=== PATIENT | female | born 1960 | race Caucasian/White ===

== ENCOUNTER 2016-10-24 21:50 | Emergency (ER) | payer OTHER ==
[~2016-10-24] VITALS: Ht 157.5 cm; Wt 63.2 kg
[~2016-10-24 21:50] MED LIST: ALPR0.25 PO; CLX/20 PO
[2016-10-24 21:51] VITALS: TEMP 36.4; Ht 157.5 cm; Wt 63.2 kg
[2016-10-24] MEDS ORDERED: ATOR-22 PO (21:56)
[2016-10-24] MEDS ORDERED: IBUPROFEN 600 MG TAB PO STA (22:01)
--- NOTE | 2016-10-24 22:47 | DIAGNOSTIC IMAGING REPORT ---
RIGHT SHOULDER MIN 2 VIEWS ROUTINE CLINICAL HISTORY: right shoulder injury Right trauma. Pain. COMPARISON: None. DISCUSSION: The bones and joint spaces appear intact. There is no evidence of fracture, dislocation or bony disease. There is no evidence for soft tissue swelling. IMPRESSION: Negative study. Electronically signed by: Quinn Lee M.D. 10/24/2016 10:46 PM Dictated Date/Time: 10/24/2016 10:46 PM
[2016-10-24] MEDS ORDERED: HYDR-5688 PO (23:11)
[2016-10-24] MEDS ORDERED: NORCO 5/325MG HOME PACK PO ONE (23:15)
[2016-10-24 23:21] VITALS: BP 133/81; PULSE 71; O2SAT 99
--- NOTE | 2016-10-25 01:59 | EMERGENCY ROOM VISIT NOTE ---
ED Visit Note First contact with patient: 21:54 CHIEF COMPLAINT: Shoulder pain HISTORY OF PRESENT ILLNESS: This 56 year old female patient presents to the emergency department complaining of pain in the right shoulder that began today at work. 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 The patient states that she was lifting the resident, the resident refused to stand on his own after assisting with the transfer. This caused the patient's right shoulder should be pulled inferiorly , causing significant pain. There is limitation of motion of the arm because of the pain. The pain is moderate, constant and increases with motion of the hand and arm. The patient states the pain is dull and 8/10. The patient has taken nothing with relief of the pain. No previous significant previous shoulder disease or injury. No numbness or tingling. No neck and not back pain. No chest pain or shortness of breath. No abdominal pain or nausea/vomiting. No cough. REVIEW OF SYSTEMS: A 6 system review of systems was performed with positives and pertinent negatives in the HPI. ALLERGIES: Penicillin MEDICATIONS: No chronic medication PMH: Otherwise healthy SOCIAL HISTORY: Employed and lives locally PHYSICAL EXAM: Vital Signs: Reviewed nurse's notes, vital signs stable. GENERAL : White female, in no acute distress, but appears to be in pain, well-developed , well-nourished. MUSCULOSKELETAL: There is no deformity in the contour of the right shoulder and there are no surinder deformities noted. There is no sulcus sign. There is tenderness over the superior and inferior scapula as well as the lateral deltoid on the right. The patient's range of motion is limited to abduction and external rotation.. Supraspinatus strength 1/5. There is no clavicle tenderness. No tenderness of the humerus, elbow, wrist, or hand. Electrical Wirer strength 5/5. Radial pulse 2+. NECK: No tenderness to palpation over the cervical spine. HEART: Regular rate and rhythm without murmurs gallops or rubs. LUNGS: Clear to auscultation bilaterally without wheezes, rales or rhonchi. No accessory muscle use. No retractions. NEURO: The patient is alert and oriented to person, place, and time. Normal sensation to light and sharp touch. Capillary refill less than 2 seconds. RIGHT SHOULDER MIN 2 VIEWS ROUTINE CLINICAL HISTORY: right shoulder injury Right trauma. Pain. COMPARISON: None. DISCUSSION: The bones and joint spaces appear intact. There is no evidence of fracture, dislocation or bony disease. There is no evidence for soft tissue swelling. IMPRESSION: Negative study. EMERGENCY DEPARTMENT COURSE: Physical exam and history were performed. Nursing notes and EMR were reviewed. The patient appears to have been injured while assisting a resident transfer while at work this evening. X-rays were obtained of the shoulder do not show evidence of bony injury. Based on the patient's exam I do have considerable concern for a ligamentous injury. The patient was placed in a sling and given a course of Vicodin. She will need to follow with Work[employer]'s [employer] orthopedics. She was given a note for work here and she was invited back to the ER with any new, worsening, or concerning symptoms. Problem List Medical Problems: (1) History of repair of inguinal hernia Status: Resolved (2) Sterilization Status: Resolved (3) Tobacco user Status: Chronic Current/Historical Medications Scheduled Alprazolam (Xanax), 0.25 MG PO DAILY/PRN Atorvastatin (Lipitor), 20 MG PO DAILY Scheduled PRN Hydrocodone/Acetaminophen 5MG/325MG ([place] 5MG/325MG), 1 TABLET PO Q6 PRN for Pain Allergies Coded Allergies: Penicillins (Verified Adverse Reaction, Unknown, NAUSEA,VOMITING, 10/24/16) Vital Signs Date Time Temp Pulse Resp B/P Pulse Ox O2 Delivery O2 Flow Rate FiO2 10/24/16 23:21 71 18 133/81 99 10/24/16 21:51 36.4 79 20 142/90 98 Room Air Medications Administered Medications (Trade) Dose Ordered Sig/Danay Route Start Time Stop Time Status Last Admin Dose Admin Ibuprofen (Motrin Tab) 600 mg NOW STAT PO 10/24/16 22:01 10/24/16 22:03 DC 10/24/16 22:29 600 MG Acetaminophen/ Hydrocodone Bitart ([place] 5/325mg Home Pack) 1 homepack UD ONCE PO 10/24/16 23:15 10/24/16 23:16 DC 10/24/16 23:15 1 HOMEPACK Departure Information Impression Primary Impression: Injury of right shoulder Dispostion Home / Self-Care Condition FAIR Prescriptions Hydrocodone/Acetaminophen 5MG/325MG ([place] 5MG/325MG) Tab 1 TABLET PO Q6 Y for Pain, #12 TAB For Initial Treatment Prov: Ranjan Teran PA-C 10/24/16 Forms HOME CARE DOCUMENTATION FORM, Work Instructions, Additional Instructions: Patient was seen in ER today for medical care. Return to work on or as instructed by [facility]. IMPORTANT VISIT INFORMATION Patient Instructions My [facility] Additional Instructions You were seen and evaluated today on an emergency basis only. This is not a substitute for, or an effort to provide, complete comprehensive medical care. It is not possible to recognize and treat all injuries or illnesses in a single emergency department visit. For this reason it is recommended that you followup with your [employer] [employer] Orthopedics for ongoing care and evaluation. We have provided you the information for [facility], Dr. Shin's office, for convenience. For baseline pain relief you may alternate ibuprofen and acetaminophen every 4 hours for pain control. Take 600 mg ibuprofen (Advil) and then 4 hours later take 1000 mg acetaminophen (Tylenol). Do not take more than 3000 mg acetaminophen in a single day. [place] (hydrocodone/acetaminophen) 5/325 mg every 6 hours as needed for worsening breakthrough pain. Do not drink or drive on [place]. This medication will likely make you tired. Do not take M[place] and Tylenol at the same time as both contain acetaminophen. M[place] may cause constipation. You may wish to take an [id number]-[id number] stool softener like Colace if this occurs. Wear your arm sling for comfort. You are welcome to return to the emergency department anytime with new, worsening, or concerning symptoms. Work Instructions Additional Work Instructions: Patient was seen in ER today for medical care. Return to work on 10/28/2016 or as instructed by [facility].
== END 2016-10-24 23:22 | disposition home or self-care (01) ==
LOC: C.EDB 21:51 → C.EDD 23:22
DX: S49.91XA Unspecified injury of right shoulder and upper arm, initial encounter (principal); X58.XXXA Exposure to other specified factors, initial encounter; F17.200 Nicotine dependence, unspecified, uncomplicated; Z79.899 Other long term (current) drug therapy; Z88.0 Allergy status to penicillin

== ENCOUNTER 2021-01-01 11:06 | Observation (INO) ==
[2021-01-01 12:16] LABS: Basophils # (auto) 0.02 K/uL (0-0.2); Basophils % (auto) 0.1 %; Eosinophils # (auto) 0.13 K/uL (0-0.5); Hematocrit (blood only) 39.8 % (37-47); Hemoglobin 13.4 g/dL (12.0-16.0); Immature Granulocytes # (auto) 0.04 K/uL (0.00-0.02); Immature Granulocytes % (auto) 0.3 %; Lymphocytes # (auto) 1.34 K/uL (1.2-3.4); Mean Corpuscular Hemoglobin 31.5 pg (25-34); Mean Corpuscular Hgb Conc 33.7 g/dL (32-36); Mean Corpuscular Volume 93.4 fL (80-100); Mean Platelet Volume 11.1 fL (7.4-10.4); Monocytes # (auto) 0.52 K/uL (0.11-0.59); Monocytes % (auto) 3.9 %; Neutrophils # (auto) 11.39 K/uL (1.4-6.5); Neutrophils % (auto) 84.7 %; Platelet Count 240 K/uL (130-400); RDW Coefficient of Variation 13.3 % (11.5-14.5); RDW Standard Deviation 45.5 fL (36.4-46.3); Red Blood Count 4.26 M/uL (4.2-5.4); White Blood Count 13.44 K/uL (4.8-10.8)
[2021-01-01] MEDS ORDERED: SODIUM CHLORIDE 0.9% 1000ML 2,000 ML IV ONE (12:21)
[2021-01-01 12:28] LABS: Calcium 8.5 mg/dl (8.5-10.1); Potassium 4.5 mmol/L (3.5-5.1)
[2021-01-01 12:32] LABS: Albumin Level 3.2 gm/dl (3.4-5.0); BUN Creatinine Ratio 21.9 (10-20); Creatinine Clr Calc Pharmacy 59.9 ml/min; Est GFR (African American) 92.8 ml/min; Est GFR (Non-African American) 80.1 ml/min
[2021-01-01 12:38] LABS: Albumin Globulin Ratio 0.9 (0.9-2); Bilirubin Direct 0.2 mg/dl (0-0.2); Globulin 3.5 gm/dl (2.5-4.0); Phosphorus 1.8 mg/dl (2.5-4.9); Total Protein 6.7 gm/dl (6.4-8.2)
[2021-01-01 12:43] LABS: Appearance Urine Clear (Clear); Bacteria Urine Automated Negative (Negative); Bilirubin Urine Negative (Negative); Blood Urine Negative (Negative); Color Urine Yellow; Epithelial Cell Urine Auto >30 /lpf (0-5); Glucose Urine UA Negative (Negative); Ketones Urine Negative (Negative); Leukocyte Esterase Urine Negative (Negative); Nitrite Urine Negative (Negative); Protein Urine Trace (Negative); RBC Urine Automated 0-4 /hpf (0-4); Specific Gravity Urine 1.026 (1.000-1.030); Urobilinogen Urine Negative (Negative)
[2021-01-01] MEDS ORDERED: POT PHOSPHATE MONOBASIC W/ SOD TAB PO STA (12:43)
[2021-01-01] MEDS ORDERED: POTASSIUM PHOS 3 MMOL/1 ML INFUSION IV STA (12:43)
--- NOTE | 2021-01-01 12:51 | XRay Report ---
XR chest 1V portable HISTORY: 60 years-old Female sz activity acute seizure like activity COMPARISON: 08/15/2013 TECHNIQUE: Chest radiograph 08/15/2013 FINDINGS: Cardiac mediastinal and hilar silhouettes are within normal limits. No pneumothorax, pleural effusion , airspace consolidation or overt pulmonary edema. Bones appear grossly intact. IMPRESSION: No acute process. ACT 112: Negative or not required by law. The above report was generated using voice recognition software. It may contain grammatical, syntax o r spelling errors. Electronically signed by: Pedro Victoria M.D. 01/01/2021 12:49 PM
[2021-01-01] MEDS ORDERED: LORazepam 2 MG/4 ML VIAL ONE (13:05)
[2021-01-01] MEDS ORDERED: LORazepam 1 MG/2 ML VIAL IV STA (13:06)
[2021-01-01] MEDS ORDERED: SODIUM CHLORIDE 0.9% IV STA (13:16)
[2021-01-01] MEDS ORDERED: LEVETIRACETAM IV STA (13:16)
[2021-01-01 13:20] LABS: INR 1.1 (0.9-1.1); Prothrombin Time 10.9 Seconds (9.0-12.0)
[2021-01-01 13:26] LABS: Thyroid Stimulating Hormone 2.95 uIu/ml (0.300-4.500); Troponin I 0.063 ng/ml (0-0.045)
--- NOTE | 2021-01-01 13:39 | Electrocardiogram Report ---
Test Reason : Blood Pressure : / mmHG Vent. Rate : 065 BPM Atrial Rate : 065 BPM P-R Int : 174 ms QRS Dur : 084 ms QT Int : 414 ms P-R-T Axes : 070 015 037 degrees QTc Int : 430 ms Normal sinus rhythm Low voltage QRS Borderline ECG When compared with ECG of 15-AUG-2013 02:41, Nonspecific T wave abnormality no longer evident in Inferior leads Nonspecific T wave abnormality no longer evident in Lateral leads Confirmed by Harry Jones ([id number]) on 01/01/2021 1:39:37 PM Referred By: REFERRED SELF Confirmed By:Ezra Jones
[2021-01-01 14:00] LABS: Lyme Ab IgG w/WB Rflx Negative (Negative)
[2021-01-01 14:01] LABS: Lyme Ab IgM w/WB Rflx Negative (Negative)
[2021-01-01] MEDS ORDERED: OPTIRAY 320 125ml IV ONE (14:07)
[2021-01-01] MEDS ORDERED: ONDANSETRON INJ 2 MG/ML 2 ML VIAL ONE (14:14)
[2021-01-01] MEDS ORDERED: POTASSIUM PHOSPHATE 9 MMOL in SODIUM CHLORIDE 0.9% 250 ML IV ONE (14:15)
--- NOTE | 2021-01-01 14:15 | CT Scan Report ---
CT head/brain wo con CLINICAL HISTORY: 60 years-old Female with witnessed sz activity. Acute seizure like activity TECHNIQUE: Multiple axial CT images of the head were obtained without contrast. A dose lowering tech nique was utilized adhering to the principles of ALARA. COMPARISON: CTA head and neck of same day FINDINGS: Motion degraded exam. Study is limited secondary to positioning. No acute intracranial hemorrhage, mi dline shift, intracranial mass, hydrocephalus, territorial ischemia or abnormal extra-axial collectio n. The calvarium is intact. Mastoid air cells are clear. Minimal mucosal thickening of the right spheno id sinus and posterior right ethmoid air cells. Unremarkable soft tissues and orbits. IMPRESSION: No acute intracranial abnormality. ACT 112: Negative or not required by law. The above report was generated using voice recognition software. It may contain grammatical, syntax o r spelling errors. Electronically signed by: Pedro Victoria M.D. 01/01/2021 2:13 PM
[2021-01-01] MEDS ORDERED: ONDANSETRON INJ 2 MG/ML 2 ML VIAL IV STA (14:16)
--- NOTE | 2021-01-01 14:18 | CT Scan Report ---
CT angio head w con CLINICAL HISTORY: 60 years-old Female with seizure like episodes. Acute seizure like activity COMPARISON STUDY: CT head and CT neck studies of same day TECHNIQUE: Following the IV administration of 120 cc of Optiray, CT angiogram of the brain was perfor med from the skull base to the vertex. Images are reviewed in the axial, sagittal, and coronal planes . 3-D MIPS images are created and assessed. IV contrast was administered without complication. All me asurements were obtained according to NASCET criteria. A dose lowering technique was utilized adherin g to the principles of ALARA. FINDINGS: Motion degraded exam. The imaged bilateral internal carotid arteries are patent. The bilateral anteri or and middle cerebral arteries are also patent. Hypoplastic right A1 segment is likely developmental . The vertebrobasilar system and posterior cerebral arteries are widely patent. There is no aneurysm, high-grade stenosis, or proximal branch occlusion identified. Dural sinuses appear patent. No abnorm al intracranial enhancement. IMPRESSION: Unremarkable CTA of the head. ACT 112: Negative or not required by law. The above report was generated using voice recognition software. It may contain grammatical, syntax o r spelling errors. Electronically signed by: Pedro Victoria M.D. 01/01/2021 2:17 PM
--- NOTE | 2021-01-01 14:27 | CT Scan Report ---
CT ANGIOGRAPHY OF THE NECK WITH CONTRAST CLINICAL HISTORY: Seizure-like episodes. COMPARISON STUDY: No previous studies for comparison. Technique: CT angiography of the carotid and vertebral arteries was obtained using Optiray and 3D rec onstruction on an independent workstation. NASCET criteria was utilized. Automated exposure control was utilized for the study. A dose lowering technique was utilized adhering to the principles of ALA RA. CT DOSE: 1637.61 mGy.cm Findings: Visualized portions of the lung apices to demonstrate emphysema. Interlobular septal thicke samantha. In addition, there are bilateral alveolar opacities, greater within the left lung. These are pa rtially imaged on this exam. There is no cervical lymphadenopathy. A sclerotic lesion within the C4 v ertebral body is probably benign. Several left parotid nodules measure up to 1.6 cm. There is no acut e cervical spine fracture. The epiglottis is normal. The bilateral common carotid, cervical internal carotid and vertebral arteries are patent. There is no stenosis or dissection within these vessels. T here is no aneurysm within the neck. CTA of the head will be reported separate. IMPRESSION: 1. No stenosis or dissection within the bilateral common carotid, cervical internal carotid or verteb ral arteries. 2. Interlobular septal thickening within the lung apices consistent with interstitial pulmonary edema . Bilateral alveolar opacities, partially imaged on this exam. These may reflect alveolar pulmonary e [place] or an infectious process. 3. Emphysema. ACT 112: Negative or not required by law. Electronically signed by: Db Perkins M.D. 01/01/2021 2:25 PM
[2021-01-01 16:55] LABS: Appearance Urine Clear (Clear); Bacteria Urine Automated Negative (Negative); Bilirubin Urine Negative (Negative); Blood Urine Trace (Negative); Color Urine Yellow; Epithelial Cell Urine Auto >30 /lpf (0-5); Glucose Urine UA Negative (Negative); Ketones Urine Negative (Negative); Leukocyte Esterase Urine Negative (Negative); Nitrite Urine Negative (Negative); Protein Urine Negative (Negative); RBC Urine Automated 0-4 /hpf (0-4); Specific Gravity Urine > 1.045 (1.000-1.030); Urobilinogen Urine Negative (Negative)
[2021-01-01 17:17] LABS: Amphetamines+Metham, Urine Neg (Neg); Barbiturates, Urine Neg (Neg); Benzodiazepine, Urine Neg (Neg); Cocaine, Urine Neg (Neg); MDMA (Ecstacy), Urine Neg (Neg); Methadone, Urine Neg (Neg); Opiate, Urine Neg (Neg); Phencyclidine, Urine Neg (Neg)
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
--- NOTE | 2021-01-01 19:45 | Emergency Department Note ---
Impression & Plan New onset seizure, Recurrent seizures, Hypophosphatemia, Hypotension ED Provider Note NAME: FANTA ROUSE AGE: 60 SEX: F ARRIVES VIA: Ambulance INFORMANT: Patient, ED PROVIDER(S): Olaf Glass MD CHIEF COMPLAINT: Seizure like activity. PLAN: Disposition: Admit MEDICAL DECISION MAKING: The patient is a pleasant 60-year-old woman with a past medical history of anxiety and migraines, hyperlipidemia who presents emerge department accompanied by her for concerns for seizure-like episode that he witnessed this morning when they were sleeping in on the day off at approximately 9:30 AM he felt the bed shaking and turned over and saw that the patient was exhibiting shaking intense movements with foaming at the mouth that lasted for kendall roximately several minutes and then subsequently was somnolent and confused for approximately 15 minutes. They deny any prior history of seizure disorder. They deny any regular alcohol use. They report that she has been off of her Xanax for 6 months or more. They deny any drug use. Prior to today she denies any fevers, chills, cough, congestion, GI or symptoms. Her reports that she had her last migraine last weekend that resolved with [id number] medications and she is doing well subsequently. On arrival the patient is fatigued appearing but no acute distress, afebrile w ith hypotension in the 80s/60s that was fluid responsive and vital signs otherwise stable. She appears clinically dry. She has no focal neurologic deficits. She had dried blood on her lower and upper lip which upon removal did not demonstrate any lip laceration. There was no obvious tongue biting. She does have a chronic tongue nodule on the distal right aspect of her tongue. Her neck is supple with full range of motion. EKG witout overt acute ischemia. Chest x-ray negative for acute cardiopulmonary process. WBC 13.4, nonspecific. H/H and platelets within normal limits. Chemistry wit hout metabolic acidosis. BUN/creatinine> 20 consistent with patient's clinical dry appearance. Phosphorus was 1.8 with repletion initiated. Electrolytes and LFTs are otherwise unremarkable. Initial troponin 0.063, marginally elevated which is suspected to be related to demand in setting of suspected seizure episode. UA without convincing evidence of infection. Urine drug screen was positive for THC. Lyme screen was negative. Covid-19 PCR negative. Of note, during the patient's evaluation she had an acute seizure-like episode which lasted approximately 2 minutes and was resolving by the time and then was administered. She did exhibit tonic-clonic movements and foaming at the mouth with scant blood coming from minor tongue bite. She was loaded with 25mg/kg of Keppra and continued to improve after an approximate [id number] postictal period of confusion and disorientation. Prolactin was performed within 1 hour of this witnessed seizure episode in the emergency department however this was not particularly elevated. CT of the head and CTA of the head and neck were performed and negative for acute process. Given suspected new onset seizure disorder reasonable to admit for further evaluation. Case was discussed with Dr. Ham, [facility] hospitalist, with [facility] admitting team to evaluate the patient for admission. Triage Nursing notes reviewed and agree them. Prior medical records reviewed Vital Signs: reviewed and remarkable for hypotension. Differential diagnosis: Epilepsy, infection, hypoglycemia, electrolyte abnormalities, cardiac sources, intracerebral event, trauma, toxicologic, neurologic, syncope, as well as other pathologies. ER treatment provided: See below. Diagnostics interpreted by me: ECG: Normal sinus rhythm, 65 bpm, no ectopy, no overt acute ischemia. Cardiac Monitoring: An order for continuous cardiac monitoring was placed and demonstrated Normal sinus rhythm, 65 bpm, no ectopy. Laboratory studies: See below Imaging studies: See below Consultation(s): Case was discussed with Dr. Ham, [facility] hospitalist, who will evaluate the patient for admission. HPI: The patient is a pleasant 60-year-old woman with a past medical history of anxiety and migraines, hyperlipidemia who presents emerge department accompanied by her for concerns for seizure-like episode that he witnessed this morning when they were sleeping in on the day off at approximately 9:30 AM he fe lt the bed shaking and turned over and saw that the patient was exhibiting shaking intense movements with foaming at the mouth that lasted for approximately several minutes and then subsequently was somnolent and confused for approximately 15 minutes. They deny any prior history of seizure disorder. They deny any regular alcohol use. They report that she has been off of her Xanax for 6 months or more. They deny any drug use. Prior to today she denies any fevers, chills, cough, congestion, GI or symptoms. Her reports that she had her last migraine last weekend that resolved with [id number] medications and she is doing well subsequently. ROS: See above HPI for pertinent positives & negatives. A total of 10 systems reviewed and were otherwise negative. PAST MEDICAL HISTORY:See Below PAST SURGICAL HISTORY:See Below FAMILY HISTORY:See Below SOCIAL HISTORY:See Below HOME MEDICATIONS:See Below ALLERGIES:See Below VITALS:See Below PHYSICAL EXAMINATION: GENERAL: Awake, alert, fatigued-appearing, in no distress HENT: Normocephalic, atraumatic. Oropharynx with dry mucous membranes and otherwise unremarkable. EYES: Normal conjunctiva. Sclera non-icteric. EOMI. No nystamgus. PEARRL. NECK: Supple. No nuchal rigidity. FROM. No JVD. RESPIRATORY: Clear to auscultation. CARDIAC: Regular rate, normal rhythm. Extremities warm and well perfused. Pulses equal. ABDOMEN: Soft, non-distended. No tenderness to palpation. No rebound or guar ding. No masses. RECTAL: Deferred. MUSCULOSKELETAL: Chest examination reveals no tenderness. The back is symmetrical on inspection without obvious abnormality. There is no CVA tenderness to palpation. No joint edema. LOWER EXTREMITIES: Calves are equal size bilaterally and non-tender. No edema. No discoloration. NEURO: No focal sensory or motor deficits noted. 5/5 strength and SILT x 4 extremities. Cerebellar function intact including [id number], alternating palms, [id number]. SKIN: No rash or jaundice noted. ED COURSE: Critical Care: I have personally spent greater than 75 minutes of critical care time in the direct management of this patient. This includes bedside care, interpretation of diagnostic studies, and testing, discussion with consultants, patient, and family members, and other required patient management activities. This 75 minutes is in excess of all separately billable procedures. Olaf Glass MD Past Med/Surg History Medical History (Updated 01/01/21 @ 19:45 by Olaf Glass MD) Anxiety Hyperlipidemia Solitary pulmonary nodule Surgical History H/O tubal ligation History of repair of inguinal hernia (05/09/11) S/P appendectomy (08/15/13) Family History Mother Breast cancer metastatic Father Diabetes with neuropathy Coronary heart disease s/p CABG Daughter Scoliosis Brother Diabetes Social History Smoking Status: Never smoker Hx Alcohol Use: Yes Alcohol type: wine Hx Substance Use: No Preferred Language: Serbian Communication Ability: Effective Visual Impairment: No Limitations Hearing Ability: Normal 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 Operator Required: No marital status: Current Living Situation: Spouse current occupational status: employed 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 Feels Safe at Home: Yes Childhood Exposure to Second-Hand Smoke: Yes caffeine: Yes Dental Care, Regularly: No Physical Activity Frequency: 3-4 Times per Week Seatbelt Use: always Sunscreen Use: Yes Allergies Allergies Allergy/AdvReac Type Severity Reaction Status Date / Time Penicillins AdvReac Unknown NAUSEA,VOMI Verified 01/01/21 15:28 TING Home Meds Home Medications Medication Instructions Recorded Confirmed atorvastatin 10 mg tablet (Lipitor) 10 mg PO DAILY 01/01/21 01/01/21 Results & Data (ED) Vital Signs Vital Signs - 24 hr 01/01/21 11:10 01/01/21 11:15 01/01/21 11:45 Temperature 36.7 C Temperature Source Oral Pulse Rate 69 82 72 Pulse Rate from SpO2 Sensor 69 70 Pulse Rhythm Regular Pulse Strength Normal Respiratory Rate 24 20 18 Respiratory Effort / Characteristics Non-Labored Spontaneous Respiratory Depth Normal Respiratory Pattern Regular Blood Pressure 86/74 L 86/72 L 112/79 Blood Pressure Mean 78 76 90 Blood Pressure Position Sitting Pulse Oximetry 97 100 98 Oxygen Delivery Method Room Air Sepsis Recent Fever Within 48 Hours No Sepsis New/Unexplained Change in Mental Status No Sepsis Action Taken by Nursing No Action Required 01/01/21 12:01 01/01/21 12:15 01/01/21 12:30 Temperature Temperature Source Pulse Rate 76 68 65 Pulse Rate from SpO2 Sensor 72 66 64 Pulse Rhythm Pulse Strength Respiratory Rate 26 H 19 17 Respiratory Effort / Characteristics Respiratory Depth Respiratory Pattern Blood Pressure 108/75 123/80 133/74 Blood Pressure Mean 86 94 93 Blood Pressure Position Pulse Oximetry 99 98 97 Oxygen Delivery Method Sepsis Recent Fever Within 48 Hours Sepsis New/Unexplained Change in Mental Status Sepsis Action Taken by Nursing 01/01/21 12:45 01/01/21 13:00 01/01/21 13:12 Temperature Temperature Source Pulse Rate 69 75 Pulse Rate from SpO2 Sensor 65 75 Pulse Rhythm Pulse Strength Respiratory Rate 20 84 H 20 Respiratory Effort / Characteristics Respiratory Depth Respiratory Pattern Blood Pressure 119/78 117/87 100/66 Blood Pressure Mean 91 97 77 Blood Pressure Position Pulse Oximetry 97 96 Oxygen Delivery Method Sepsis Recent Fever Within 48 Hours Sepsis New/Unexplained Change in Mental Status Sepsis Action Taken by Nursing 01/01/21 13:30 01/01/21 15:01 01/01/21 15:30 Temperature Temperature Source Pulse Rate 82 78 79 Pulse Rate from SpO2 Sensor 81 76 Pulse Rhythm Pulse Strength Respiratory Rate 25 H 23 20 Respiratory Effort / Characteristics Respiratory Depth Respiratory Pattern Blood Pressure 103/68 110/75 115/90 Blood Pressure Mean 79 86 98 Blood Pressure Position Pulse Oximetry 93 97 Oxygen Delivery Method Sepsis Recent Fever Within 48 Hours Sepsis New/Unexplained Change in Mental Status Sepsis Action Taken by Nursing 01/01/21 16:01 01/01/21 16:31 01/01/21 17:00 Temperature Temperature Source Pulse Rate 74 89 52 L Pulse Rate from SpO2 Sensor 74 88 55 L Pulse Rhythm Pulse Strength Respiratory Rate 19 20 17 Respiratory Effort / Characteristics Respiratory Depth Respiratory Pattern Blood Pressure 129/84 138/68 Blood Pressure Mean 99 91 Blood Pressure Position Pulse Oximetry 96 95 97 Oxygen Delivery Method Sepsis Recent Fever Within 48 Hours Sepsis New/Unexplained Change in Mental Status Sepsis Action Taken by Nursing 01/01/21 17:30 Temperature Temperature Source Pulse Rate 64 Pulse Rate from SpO2 Sensor 66 Pulse Rhythm Pulse Strength Respiratory Rate 22 Respiratory Effort / Characteristics Respiratory Depth Respiratory Pattern Blood Pressure 116/70 Blood Pressure Mean 85 Blood Pressure Position Pulse Oximetry 96 Oxygen Delivery Method Sepsis Recent Fever Within 48 Hours Sepsis New/Unexplained Change in Mental Status Sepsis Action Taken by Nursing Laboratory Data Attestation: I reviewed the patient's lab results. Result diagrams: 01/01/21 12:05 01/01/21 12:05 Lab Results 01/01/21 01/01/21 01/01/21 Range/Units 11:40 12:05 12:05 WBC 13.44 H (4.8-10.8) K/uL RBC 4.26 (4.2-5.4) M/uL Hgb 13.4 (12.0-16.0) g/dL Hct 39.8 (37-47) % MCV 93.4 (80-100) fL MCH 31.5 (25-34) pg MCHC 33.7 (32-36) g/dL RDW Std Deviation 45.5 (36.4-46.3) fL RDW Coeff of [place] 13.3 (11.5-14.5) % Plt Count 240 (130-400) K/uL MPV 11.1 H (7.4-10.4) fL Immature Gran % (Auto) 0.3 % Neut % (Auto) 84.7 % Lymph % (Auto) 10.0 % Nuckolls % (Auto) 3.9 % Eos % (Auto) 1.0 % Baso % (Auto) 0.1 % Neut # (Auto) 11.39 H (1.4-6.5) K/uL Lymph # (Auto) 1.34 (1.2-3.4) K/uL [place]oll[place] # (Auto) 0.52 (0.11-0.59) K/uL Eos # (Auto) 0.13 (0-0.5) K/uL Baso # (Auto) 0.02 (0-0.2) K/uL Immature Gran # (Auto) 0.04 H (0.00-0.02) K/uL PT (9.0-12.0) Seconds INR (0.9-1.1) Sodium 142 (136-145) mmol/L Potassium 4.5 (3.5-5.1) mmol/L Chloride 114 H (98-107) mmol/L Carbon Dioxide 23 (21-32) mmol/L Anion Gap 5.0 (3-11) BUN 18 (7-18) mg/dl Creatinine 0.81 (0.6-1.2) mg/dl Est Cr Clr Drug Dosing 59.9 ml/min Est GFR ( Amer) 92.8 ml/min Est GFR (Non-Af Amer) 80.1 ml/min BUN/Creatinine Ratio 21.9 H (10-20) Glucose 123 H (70-99) mg/dl Calcium 8.5 (8.5-10.1) mg/dl Phosphorus 1.8 L (2.5-4.9) mg/dl Magnesium 2.0 (1.8-2.4) mg/dl Total Bilirubin 1.0 (0.2-1) mg/dl Direct Bilirubin 0.2 (0-0.2) mg/dl AST 16 (15-37) U/L ALT 25 (12-78) U/L Alkaline Phosphatase 94 (45-117) U/L Total Creatine Kinase 129 (26-192) U/L Troponin I 0.063 H* (0-0.045) ng/ml Total Protein 6.7 (6.4-8.2) gm/dl Albumin 3.2 L (3.4-5.0) gm/dl Globulin 3.5 (2.5-4.0) gm/dl Albumin/Globulin Ratio 0.9 (0.9-2) Lipase 180 (73-393) U/L TSH 2.950 (0.300-4.500) uIu/ml Prolactin ng/ml Urine Color Yellow Urine Appearance Clear (Clear) Urine pH 5.0 (4.5-7.5) Ur Specific Hiram 1.026 (1.000-1.030) Urine Protein Trace H (Negative) Urine Glucose (UA) Negative (Negative) Urine Ketones Negative (Negative) Urine Blood Negative (Negative) Urine Nitrite Negative (Negative) Urine Bilirubin Negative (Negative) Urine Urobilinogen Negative (Negative) Ur Leukocyte Esterase Negative (Negative) Urine WBC (Auto) 1-5 (0-5) /hpf Urine RBC (Auto) 0-4 (0-4) /hpf U Hyaline Cast (Auto) 1-5 (0-5) /lpf U Epithel Cells (Auto) >30 H (0-5) /lpf Urine Bacteria (Auto) Negative (Negative) Urine Opiates Screen (Neg) Ur Methadone, Qual (Neg) Urine Barbiturates (Neg) Ur Phencyclidine (PCP) (Neg) U Amphetamin/Meth Scrn (Neg) MDMA (Ecstasy) Screen (Neg) U Benzodiazepines Scrn (Neg) Ur Cocaine Metabolite (Neg) U Marijuana (THC) Screen (Neg) Ethyl Alcohol mg/dL (0-3) mg/dl Lyme Disease IgG Ab (Negative) Lyme Disease IgM Ab (Negative) COVID-19 Eval Order 01/01/21 01/01/21 01/01/21 Range/Units 12:58 12:58 12:58 WBC (4.8-10.8) K/uL RBC (4.2-5.4) M/uL Hgb (12.0-16.0) g/dL Hct (37-47) % MCV (80-100) fL MCH (25-34) pg MCHC (32-36) g/dL RDW Std Deviation (36.4-46.3) fL RDW Coeff of [place] (11.5-14.5) % Plt Count (130-400) K/uL MPV (7.4-10.4) fL Immature Gran % (Auto) % Neut % (Auto) % Lymph % (Auto) % Nuckolls % (Auto) % Eos % (Auto) % Baso % (Auto) % Neut # (Auto) (1.4-6.5) K/uL Lymph # (Auto) (1.2-3.4) K/uL [place]olls # (Auto) (0.11-0.59) K/uL Eos # (Auto) (0-0.5) K/uL Baso # (Auto) (0-0.2) K/uL Immature Gran # (Auto) (0.00-0.02) K/uL PT 10.9 (9.0-12.0) Seconds INR 1.1 (0.9-1.1) Sodium (136-145) mmol/L Potassium (3.5-5.1) mmol/L Chloride (98-107) mmol/L Carbon Dioxide (21-32) mmol/L Anion Gap (3-11) BUN (7-18) mg/dl Creatinine (0.6-1.2) mg/dl Est Cr Clr Drug Dosing ml/min Est GFR ( Amer) ml/min Est GFR (Non-Af Amer) ml/min BUN/Creatinine Ratio (10-20) Glucose (70-99) mg/dl Calcium (8.5-10.1) mg/dl Phosphorus (2.5-4.9) mg/dl Magnesium (1.8-2.4) mg/dl Total Bilirubin (0.2-1) mg/dl Direct Bilirubin (0-0.2) mg/dl AST (15-37) U/L ALT (12-78) U/L Alkaline Phosphatase (45-117) U/L Total Creatine Kinase (26-192) U/L Troponin I (0-0.045) ng/ml Total Protein (6.4-8.2) gm/dl Albumin (3.4-5.0) gm/dl Globulin (2.5-4.0) gm/dl Albumin/Globulin Ratio (0.9-2) Lipase (73-393) U/L TSH (0.300-4.500) uIu/ml Prolactin ng/ml Urine Color Urine Appearance (Clear) Urine pH (4.5-7.5) Ur Specific Hiram (1.000-1.030) Urine Protein (Negative) Urine Glucose (UA) (Negative) Urine Ketones (Negative) Urine Blood (Negative) Urine Nitrite (Negative) Urine Bilirubin (Negative) Urine Urobilinogen (Negative) Ur Leukocyte Esterase (Negative) Urine WBC (Auto) (0-5) /hpf Urine RBC (Auto) (0-4) /hpf U Hyaline Cast (Auto) (0-5) /lpf U Epithel Cells (Auto) (0-5) /lpf Urine Bacteria (Auto) (Negative) Urine Opiates Screen (Neg) Ur Methadone, Qual (Neg) Urine Barbiturates (Neg) Ur Phencyclidine (PCP) (Neg) U Amphetamin/Meth Scrn (Neg) MDMA (Ecstasy) Screen (Neg) U Benzodiazepines Scrn (Neg) Ur Cocaine Metabolite (Neg) U Marijuana (THC) Screen (Neg) Ethyl Alcohol mg/dL < 3.0 (0-3) mg/dl Lyme Disease IgG Ab Negative (Negative) Lyme Disease IgM Ab Negative (Negative) COVID-19 Eval Order 01/01/21 01/01/21 01/01/21 Range/Units 12:58 16:40 16:40 WBC (4.8-10.8) K/uL RBC (4.2-5.4) M/uL Hgb (12.0-16.0) g/dL Hct (37-47) % MCV (80-100) fL MCH (25-34) pg MCHC (32-36) g/dL RDW Std Deviation (36.4-46.3) fL RDW Coeff of [place] (11.5-14.5) % Plt Count (130-400) K/uL MPV (7.4-10.4) fL Immature Gran % (Auto) % Neut % (Auto) % Lymph % (Auto) % [place]oll[place] % (Auto) % Eos % (Auto) % Baso % (Auto) % Neut # (Auto) (1.4-6.5) K/uL Lymph # (Auto) (1.2-3.4) K/uL [place] # (Auto) (0.11-0.59) K/uL Eos # (Auto) (0-0.5) K/uL Baso # (Auto) (0-0.2) K/uL Immature Gran # (Auto) (0.00-0.02) K/uL PT (9.0-12.0) Seconds INR (0.9-1.1) Sodium (136-145) mmol/L Potassium (3.5-5.1) mmol/L Chloride (98-107) mmol/L Carbon Dioxide (21-32) mmol/L Anion Gap (3-11) BUN (7-18) mg/dl Creatinine (0.6-1.2) mg/dl Est Cr Clr Drug Dosing ml/min Est GFR ( Amer) ml/min Est GFR (Non-Af Amer) ml/min BUN/Creatinine Ratio (10-20) Glucose (70-99) mg/dl Calcium (8.5-10.1) mg/dl Phosphorus (2.5-4.9) mg/dl Magnesium (1.8-2.4) mg/dl Total Bilirubin (0.2-1) mg/dl Direct Bilirubin (0-0.2) mg/dl AST (15-37) U/L ALT (12-78) U/L Alkaline Phosphatase (45-117) U/L Total Creatine Kinase (26-192) U/L Troponin I (0-0.045) ng/ml Total Protein (6.4-8.2) gm/dl Albumin (3.4-5.0) gm/dl Globulin (2.5-4.0) gm/dl Albumin/Globulin Ratio (0.9-2) Lipase (73-393) U/L TSH (0.300-4.500) uIu/ml Prolactin 13.85 ng/ml Urine Color Yellow Urine Appearance Clear (Clear) Urine pH 5.0 (4.5-7.5) Ur Specific [place] > 1.045 H (1.000-1.030) Urine Protein Negative (Negative) Urine Glucose (UA) Negative (Negative) Urine Ketones Negative (Negative) Urine Blood Trace H (Negative) Urine Nitrite Negative (Negative) Urine Bilirubin Negative (Negative) Urine Urobilinogen Negative (Negative) Ur Leukocyte Esterase Negative (Negative) Urine WBC (Auto) 1-5 (0-5) /hpf Urine RBC (Auto) 0-4 (0-4) /hpf U Hyaline Cast (Auto) 1-5 (0-5) /lpf U Epithel Cells (Auto) >30 H (0-5) /lpf Urine Bacteria (Auto) Negative (Negative) Urine Opiates Screen Neg (Neg) Ur Methadone, Qual Neg (Neg) Urine Barbiturates Neg (Neg) Ur Phencyclidine (PCP) Neg (Neg) U Amphetamin/Meth Scrn Neg (Neg) MDMA (Ecstasy) Screen Neg (Neg) U Benzodiazepines Scrn Neg (Neg) Ur Cocaine Metabolite Neg (Neg) U Marijuana (THC) Screen Pos H (Neg) Ethyl Alcohol mg/dL (0-3) mg/dl Lyme Disease IgG Ab (Negative) Lyme Disease IgM Ab (Negative) COVID-19 Eval Order 01/01/21 01/01/21 Range/Units 18:20 18:24 WBC (4.8-10.8) K/uL RBC (4.2-5.4) M/uL Hgb (12.0-16.0) g/dL Hct (37-47) % MCV (80-100) fL MCH (25-34) pg MCHC (32-36) g/dL RDW Std Deviation (36.4-46.3) fL RDW Coeff of [place] (11.5-14.5) % Plt Count (130-400) K/uL MPV (7.4-10.4) fL Immature Gran % (Auto) % Neut % (Auto) % Lymph % (Auto) % [place]oll[place] % (Auto) % Eos % (Auto) % Baso % (Auto) % Neut # (Auto) (1.4-6.5) K/uL Lymph # (Auto) (1.2-3.4) K/uL [place] # (Auto) (0.11-0.59) K/uL Eos # (Auto) (0-0.5) K/uL Baso # (Auto) (0-0.2) K/uL Immature Gran # (Auto) (0.00-0.02) K/uL PT (9.0-12.0) Seconds INR (0.9-1.1) Sodium (136-145) mmol/L Potassium (3.5-5.1) mmol/L Chloride (98-107) mmol/L Carbon Dioxide (21-32) mmol/L Anion Gap (3-11) BUN (7-18) mg/dl Creatinine (0.6-1.2) mg/dl Est Cr Clr Drug Dosing ml/min Est GFR ( Amer) ml/min Est GFR (Non-Af Amer) ml/min BUN/Creatinine Ratio (10-20) Glucose (70-99) mg/dl Calcium (8.5-10.1) mg/dl Phosphorus (2.5-4.9) mg/dl Magnesium (1.8-2.4) mg/dl Total Bilirubin (0.2-1) mg/dl Direct Bilirubin (0-0.2) mg/dl AST (15-37) U/L ALT (12-78) U/L Alkaline Phosphatase (45-117) U/L Total Creatine Kinase (26-192) U/L Troponin I 0.379 H* (0-0.045) ng/ml Total Protein (6.4-8.2) gm/dl Albumin (3.4-5.0) gm/dl Globulin (2.5-4.0) gm/dl Albumin/Globulin Ratio (0.9-2) Lipase (73-393) U/L TSH (0.300-4.500) uIu/ml Prolactin ng/ml Urine Color Urine Appearance (Clear) Urine pH (4.5-7.5) Ur Specific [place] (1.000-1.030) Urine Protein (Negative) Urine Glucose (UA) (Negative) Urine Ketones (Negative) Urine Blood (Negative) Urine Nitrite (Negative) Urine Bilirubin (Negative) Urine Urobilinogen (Negative) Ur Leukocyte Esterase (Negative) Urine WBC (Auto) (0-5) /hpf Urine RBC (Auto) (0-4) /hpf U Hyaline Cast (Auto) (0-5) /lpf U Epithel Cells (Auto) (0-5) /lpf Urine Bacteria (Auto) (Negative) Urine Opiates Screen (Neg) Ur Methadone, Qual (Neg) Urine Barbiturates (Neg) Ur Phencyclidine (PCP) (Neg) U Amphetamin/Meth Scrn (Neg) MDMA (Ecstasy) Screen (Neg) U Benzodiazepines Scrn (Neg) Ur Cocaine Metabolite (Neg) U Marijuana (THC) Screen (Neg) Ethyl Alcohol mg/dL (0-3) mg/dl Lyme Disease IgG Ab (Negative) Lyme Disease IgM Ab (Negative) COVID-19 Eval Order Covid19 at [facility] Administered Medications Discontinued Medications Sodium Chloride (Nss 1000ml) 2,000 mls @ 999 mls/hr IV .Q2H1M ONE Stop: 01/01/21 14:21 Last Infusion: 01/01/21 15:17 Dose: 0 mls/hr Documented by: [id number] Admin: 01/01/21 13:14 Dose: 999 mls/hr Documented by: [id number] Lorazepam (Ativan) 1 mg in 2 mls @ 2 mls/min IV NOW STA Stop: 01/01/21 13:07 Last Admin: 01/01/21 13:13 Dose: 2 mls/min Documented by: [id number] Levetiracetam 1,200 mg/ Sodium (Chloride) 112 mls @ 440 mls/hr IV NOW STA Stop: 01/01/21 13:31 Last Infusion: 01/01/21 13:51 Dose: 0 mls/hr Documented by: [id number] Admin: 01/01/21 13:35 Dose: 440 mls/hr Documented by: [id number] Potassium Phosphate 9 mmol/ (Sodium Chloride) 253 mls @ 165 mls/hr IV 1415 ONE Stop: 01/01/21 15:46 Last Admin: 01/01/21 14:28 Dose: Not Given Documented by: [id number] Ioversol (Optiray 320 125ml) 120 ml IV ONCE ONE Stop: 01/01/21 14:08 Last Admin: 01/01/21 14:07 Dose: 120 ml Documented by: [id number] Lorazepam (Lorazepam 2 Mg/4 Ml Vial) Confirm Administered Dose 2 mg .ROUTE .STK- MED ONE Stop: 01/01/21 13:06 Last Admin: 01/01/21 13:14 Dose: Not Given Documented by: [id number] Ondansetron HCl (Ondansetron Inj 2 Mg/Ml 2 Ml Vial) Confirm Administered Dose 4 mg .ROUTE .STK-MED ONE Stop: 01/01/21 14:15 Last Admin: 01/01/21 14:27 Dose: 4 mg Documented by: [id number] Ondansetron HCl (Ondansetron Inj 2 Mg/Ml 2 Ml Vial) 4 mg IV NOW STA Stop: 01/01/21 14:17 Last Admin: 01/01/21 14:27 Dose: Not Given Documented by: [id number] Potassium Phosphate (Pot Phosphate Monobasic W/ Sod Tab) 2 tab PO NOW STA Stop: 01/01/21 12:44 Last Admin: 01/01/21 14:28 Dose: Not Given Documented by: [id number] Potassium Phosphate (Potassium Phos 3 Mmol/1 Ml Infusion) 9 mmol IV NOW STA Stop: 01/01/21 12:44 Last Admin: 01/01/21 14:27 Dose: 9 mmol Documented by: [id number] Imaging Data Radiologist's Impression: Chest X-Ray 01/01/21 12:21 XR chest 1V portable HISTORY: 60 years-old Female sz activity acute seizure like activity COMPARISON: 08/15/2013 TECHNIQUE: Chest radiograph 08/15/2013 FINDINGS: Cardiac mediastinal and hilar silhouettes are within normal limits. No pneumothorax, pleural effusion, airspace consolidation or overt pulmonary edema. Bones appear grossly intact. IMPRESSION: No acute process. ACT 112: Negative or not required by law. The above report was generated using voice recognition software. It may contain grammatical, syntax or spelling errors. Electronically signed by: Pedro Victoria M.D. 01/01/2021 12:[address] 01/01/21 12:21 CT head/brain wo con CLINICAL HISTORY: 60 years-old Female with witnessed sz activity. Acute seizure like activity TECHNIQUE: Multiple axial CT images of the head were obtained without contrast. A dose lowering technique was utilized adhering to the principles of ALARA. COMPARISON: CTA head and neck of same day FINDINGS: Motion degraded exam. Study is limited secondary to positioning. No acute intracranial hemorrhage, midline shift, intracranial mass, hydrocephalus, territorial ischemia or abnormal extra-axial collection. The calvarium is intact. Mastoid air cells are clear. Minimal mucosal thickening of the right sphenoid sinus and posterior right ethmoid air cells. Unremarkable soft tissues and orbits. IMPRESSION: No acute intracranial abnormality. ACT 112: Negative or not required by law. The above report was generated using voice recognition software. It may contain grammatical, syntax or spelling errors. Electronically signed by: Pedro Victoria M.D. 01/01/2021 2:13 PM Head CTA 01/01/21 13:14 CT angio head w con CLINICAL HISTORY: 60 years-old Female with seizure like episodes. Acute seizure like activity COMPARISON STUDY: CT head and CT neck studies of same day TECHNIQUE: Following the IV administration of 120 cc of Optiray, CT angiogram of the brain was performed from the skull base to the vertex. Images are reviewed in the axial, sagittal, and coronal planes. 3-D MIPS images are created and assessed. IV contrast was administered without complication. All measurements were obtained according to NASCET criteria. A dose lowering technique was util ized adhering to the principles of ALARA. FINDINGS: Motion degraded exam. The imaged bilateral internal carotid arteries are patent. The bilateral anterior and middle cerebral arteries are also patent. Hypoplastic right A1 segment is likely developmental. The vertebrobasilar system and posterior cerebral arteries are widely patent. There is no aneurysm, high-grade stenosis, or proximal branch occlusion identified. Dural sinuses appear patent. No abnormal intracranial enhancement. IMPRESSION: Unremarkable CTA of the head. ACT 112: Negative or not required by law. The above report was generated using voice recognition software. It may contain grammatical, syntax or spelling errors. Electronically signed by: Pedro Victoria M.D. 01/01/2021 2:17 PM Neck CTA 01/01/21 13:14 CT ANGIOGRAPHY OF THE NECK WITH CONTRAST CLINICAL HISTORY: Seizure-like episodes. COMPARISON STUDY: No previous studies for comparison. Technique: CT angiography of the carotid and vertebral arteries was obtained using Optiray and 3D reconstruction on an independent workstation. NASCET criteria was utilized. Automated exposure control was utilized for the study. A dose lowering technique was utilized adhering to the principles of ALARA. CT DOSE: 1637.61 mGy.cm Findings: Visualized portions of the lung apices to demonstrate emphysema. Interlobular septal thickening. In addition, there are bilateral alveolar opacities, greater within the left lung. These are partially imaged on this exam. There is no cervical lymphadenopathy. A sclerotic lesion within the C4 vertebral body is probably benign. Several left parotid nodules measure up to 1.6 cm. There is no acute cervical spine fracture. The epiglottis is normal. The bilateral common carotid, cervical internal carotid and vertebral arteries are patent. There is no stenosis or dissection within these vessels. There is no aneurysm within the neck. CTA of the head will be reported separate. IMPRESSION: 1. No stenosis or dissection within the bilateral common carotid, cervical internal carotid or vertebral arteries. 2. Interlobular septal thickening within the lung apices consistent with interstitial pulmonary edema. Bilateral alveolar opacities, partially imaged on this exam. These may reflect alveolar pulmonary edema or an infectious process. 3. Emphysema. ACT 112: Negative or not required by law. Electronically signed by: Db Perkins M.D. 01/01/2021 2:25 PM Discharge Plan Visit Data Chief Complaint: Seizure Stated Complaint: Seizure Discharge Problem: New onset seizure, Recurrent seizures, Hypophosphatemia, Hypotension Forms Stand Alone Forms: My [facility] Prescriptions Prescriptions: No Action atorvastatin [Lipitor] 10 mg tablet 10 mg PO DAILY RF: 0 Referrals Referrals: Daron Emery MD [Primary Care Provider] -
[2021-01-01] MEDS ORDERED: GADOBUTROL 65ML VIAL IV ONE (21:02)
--- NOTE | 2021-01-01 21:34 | Magnetic Resonance Report ---
MRI OF THE BRAIN WITHOUT AND WITH IV CONTRAST SEIZURE PROTOCOL CLINICAL HISTORY: new-onset seizure COMPARISON STUDY: Head CT and CTA of the head performed earlier today. TECHNIQUE: Utilizing a 1.5 Essie magnet and dedicated coil, multiplanar, multiecho imaging of the br ain was performed pre and postcontrast administration. IV administration of 6 mL of Gadavist contras t was uneventful. Thin cut coronal T2 imaging was performed according to seizure protocol. FINDINGS: This exam is mildly compromised by motion artifact. There are no foci of restricted diffusi on to suggest acute infarct. No acute intracranial hemorrhage, midline shift or mass effect is presen t. Ventricular system is unremarkable. Basal cisterns are patent. There are no extra-axial collection s. Flow-voids for the major intracranial vessels are present. There is no intracranial mass or pathol ogic enhancement. Right sphenoid sinus is partially opacified. Calvarial signal is normal. Orbits are unremarkable on this nondedicated exam. There is no mastoid fluid. There is no MR evidence for mesia l temporal sclerosis. IMPRESSION: 1. No acute intracranial findings. 2. No intracranial mass or pathologic 3. Exam mildly compromised by motion artifact. ACT 112: Negative or not required by law. Electronically signed by: Db Perkins M.D. 01/01/2021 9:33 PM
[2021-01-01] MEDS ORDERED: ONDANSETRON INJ 2 MG/ML 2 ML VIAL IV PRN (22:58)
[2021-01-01] MEDS ORDERED: POLYETHYLENE (MIRALAX) 17 GM PACK PO PRN (22:58)
[2021-01-01] MEDS ORDERED: ACETAMINOPHEN 325 MG TAB PO PRN (22:58)
[2021-01-01] MEDS ORDERED: MAGNESIUM HYDROXIDE SUSP 30 ML UDC PO PRN (22:58)
[2021-01-01] MEDS ORDERED: ENOXAPARIN INJ 30 MG/0.3 ML SYR SQ SCH (23:00)
[2021-01-02 01:58] LABS: Basophils # (auto) 0.01 K/uL (0-0.2); Basophils % (auto) 0.1 %; Eosinophils # (auto) 0.05 K/uL (0-0.5); Eosinophils % (auto) 0.3 %; Hematocrit (blood only) 35.9 % (37-47); Hemoglobin 12.5 g/dL (12.0-16.0); Immature Granulocytes # (auto) 0.05 K/uL (0.00-0.02); Immature Granulocytes % (auto) 0.3 %; Lymphocytes # (auto) 2.46 K/uL (1.2-3.4); Lymphocytes % (auto) 15.2 %; Mean Corpuscular Hemoglobin 31.5 pg (25-34); Mean Corpuscular Hgb Conc 34.8 g/dL (32-36); Mean Corpuscular Volume 90.4 fL (80-100); Mean Platelet Volume 11.6 fL (7.4-10.4); Monocytes # (auto) 0.91 K/uL (0.11-0.59); Monocytes % (auto) 5.6 %; Neutrophils # (auto) 12.67 K/uL (1.4-6.5); Neutrophils % (auto) 78.5 %; Platelet Count 188 K/uL (130-400); RDW Coefficient of Variation 13.2 % (11.5-14.5); RDW Standard Deviation 43.8 fL (36.4-46.3); Red Blood Count 3.97 M/uL (4.2-5.4); White Blood Count 16.15 K/uL (4.8-10.8)
[2021-01-02] MEDS: levETIRAcetam 500 MG in 0.9 % SODIUM CHLORIDE 100 ML IV SCH ×3 (02:06→11:07)
[2021-01-02 02:27] LABS: BUN Creatinine Ratio 18.6 (10-20); Calcium 8.6 mg/dl (8.5-10.1); Creatinine Clr Calc Pharmacy 79.8 ml/min; Est GFR (African American) 115.6 ml/min; Est GFR (Non-African American) 99.8 ml/min; Potassium 3.6 mmol/L (3.5-5.1)
--- NOTE | 2021-01-02 07:05 | Hospitalist Progress Note ---
Date of Service January 02, 2021 Assessment & Plan (1) New onset seizure: Plan: 60yo female with migraine, HLD, anxiety, and nicotine dependence presents with new-onset seizure. intermittent soft bps 90s/50s-60s. 2L NC at night. 92 on RA. other vitals ok. uptrending wbc 13.44->16.15. Hb stable. K 4.5->3.6. trop 0.337->0.080 neck cta 1. No stenosis or dissection within the bilateral common carotid, cervical internal carotid or vertebral arteries. 2. Interlobular septal thickening within the lung apices consistent with interstitial pulmonary edema. Bilateral alveolar opacities, partially imaged on this exam. These may reflect alveolar pulmonary edema or an infectious process. 3. Emphysema. brain mri 1. No acute intracranial findings. 2. No intracranial mass or pathologic 3. Exam mildly compromised by motion artifact. ecg ok plan: f/u neuro consult recs. infectious etiology lungs? aspiration? New-onset seizure Symptoms likely represent new-onset seizure, though differential includes infection, complex migraine Mild leukocytosis without fever or other signs of infection likely reactive in setting of seizure activity Patient without hyponatremia or other concerning electrolyte abnormalities CT head, CTA head, and CTA neck unremarkable Keppra 1200mg loading dose given in ED in addition to ativan 1mg IV one-time dose Keppra 500mg q12h to be started 12 hours after the above loading dose MRA brain w/+w/o contrast ordered Admit to med/surg Neurology consulted Seizure precautions Bedside swallow study to be performed prior to restarting diet Zofran prn nausea Elevated troponin Patient with troponin of 0.063 on admission EKG without ischemic change, no chest pain or other symptoms concerning for ACS Likely elevated in the setting of generalized tonic-clonic seizure, but will repeat level to ensure downward trend HLD Continue home meds Anxiety Hold home xanax Nicotine dependence 1ppd smoker Consider nicotine replacement therapy if requested 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 Her tongue hurts some. Review of Systems Review of Systems: Constitutional: Denies fever, chills, weight change Eyes: Denies blurry vision, vision changes ENT: + tongue pain Cardiovascular: Denies chest pain, palpitations Respiratory: Denies shortness of breath Gastrointestinal: Denies abdominal pain, nausea, vomiting, constipation, diarrhea Genitourinary: Denies urinary symptoms including dysuria Musculoskeletal: Denies weakness, muscle aches/pain, joint aches/pain Neurological: Denies headache, numbness, tingling, focal weakness Physical Exam Physical Exam: General: Grossly A&O. NAD. Cooperative. HEENT: Atraumatic, normocephalic. EOMI. +tongue bite curtis on right Pulm: CTAB. -wheezes, -rales, -rhonchi. No respiratory distress. Cardiac: RRR, -mrg. Abdominal: Nontender, nondistended, soft. Neuro: Strength and sensation of extremities intact Results & Data Results & Data ([facility]) Vital Signs (Past 12 Hours) Vital Signs Temp Pulse Pulse Pulse Resp BP BP 01/01/21 22:40 37 C 83 18 01/01/21 22:30 101/63 01/01/21 22:00 103/60 01/01/21 21:33 79 20 95/66 L 01/01/21 21:32 95/66 L 01/01/21 20:00 86 19 105/70 BP Pulse Ox 01/01/21 22:40 118/75 95 01/01/21 22:30 100 01/01/21 22:00 98 01/01/21 21:33 99 01/01/21 21:32 93 01/01/21 20:00 92
[2021-01-02] MEDS ORDERED: ATORVASTATIN 10 MG TAB PO SCH (09:00)
[2021-01-02] MEDS ORDERED: ENOXAPARIN INJ 30 MG/0.3 ML SYR SQ SCH (09:00)
[2021-01-02] MEDS ORDERED: levETIRAcetam 500 MG TAB PO SCH (11:15)
--- NOTE | 2021-01-02 11:39 | XRay Report ---
XR chest 2V PA/lateral HISTORY: Shortness of breath. concern for aspiration COMPARISON: Chest 01/01/2021. FINDINGS: No pneumothorax or no pleural fusions. The heart is normal in size. There is mild chronic i nterstitial thickening, unchanged. No new focal lung consolidations to suggest pneumonia. No evidence for pulmonary edema. IMPRESSION: No significant change compared to the prior study. No acute process. ACT 112: Negative or not required by law. Electronically signed by: Mamadou Garrido M.D. 01/02/2021 11:37 AM
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
[2021-01-04 09:12] LABS: Marijuana Quant, GCMS Urine 1686 ng/mL (<5)
== END 2021-01-02 16:10 | disposition home or self-care (01) ==
LOC: ED 11:06 → 3W 11:06